=== PATIENT | male | born 1995 | race Caucasian/White ===

== ENCOUNTER 2020-05-07 10:35 | Outpatient (REF) | payer MEDICAID, SELFPAY ==
--- NOTE | ~2020-05-07 | XR_ITS ---
EXAMINATION: XR RIBS, LEFT CLINICAL INFORMATION: Contusion COMPARISON: None TECHNIQUE: 3 views of the left ribs and one view of the chest were obtained. FINDINGS: Lungs are clear. No consolidation, pneumothorax, or pleural effusion. The cardiomediastinal silhouette and pulmonary vasculature are normal. Osseous structures are unremarkable. Ribs are intact. No fractures are identified. XR/XR ribs LT min 3V w CXR1V IMPRESSION: Unremarkable examination.
== END 2020-05-07 10:36 | disposition home or self-care (01) ==
LOC: HO.XRAY 10:35
PROVIDERS: PCP Internal Medicine; Visit Provider Internal Medicine
DX: S20.212A Contusion of left front wall of thorax, initial encounter (principal)
CPT/HCPCS: 71101

== ENCOUNTER 2020-11-10 11:34 | Day surgery (SDC) | payer MEDICAID, SELFPAY ==
[2020-11-10] VITALS (14 sets, daily range): BP systolic 116–161; BP diastolic 60–96; PULSE 82–101; RESP 16–20; TEMP 36.4–37; O2SAT 95–100; BMI 32.9; BMI 47.8
--- NOTE | ~2020-11-10 | US_ITS ---
EXAMINATION: US ABDOMEN LIMITED CLINICAL INFORMATION: Right upper quadrant pain. COMPARISON: None TECHNIQUE: Real-time imaging of the right upper quadrant abdominal viscera. FINDINGS: PANCREAS: Normal. LIVER: Evaluation somewhat limited due to overlying bowel gas and patient body habitus. The liver is normal in size. The liver contour is normal. Parenchymal echogenicity is normal. No focal hepatic lesion. There is no intrahepatic biliary duct dilatation seen. GALLBLADDER: Gallstone measuring up to 3.3 cm. No gallbladder wall thickening or pericholecystic free fluid to suggest acute cholecystitis. COMMON BILE DUCT: Normal in caliber measuring 0.5 cm in diameter. RIGHT KIDNEY: Partially obscured by overlying bowel gas and due to patient body habitus. No hydronephrosis. No renal calculi or focal parenchymal lesions. The kidney measures 10.5 cm in maximum dimension. FREE FLUID: None. US/US abdomen limited IMPRESSION: Cholelithiasis. No gallbladder wall thickening or pericholecystic free fluid to suggest acute cholecystitis. Liver and right kidney partially visualized due to patient body habitus and overlying bowel gas.
[2020-11-10 11:13] LABS: Appearance Urine HAZY; Color Urine YELLOW; Glucose Urine UA NEG (NEG); Leukocyte Esterase Urine NEG (NEG); Nitrite Urine NEG (NEG); Specific Gravity - Urine 1.025 (1.005-1.025); Urine Blood NEG (NEG); Urine Ketones NEG (NEG); Urine Protein TRACE MG/DL (NEG-TRACE)
[2020-11-10 11:18] LABS: WBC Urine 0 /HPF (0-4)
[2020-11-10 11:19] LABS: Mucus Urine 2+ /LPF; RBC Urine 0 /HPF (0)
--- NOTE | 2020-11-10 11:27 | ED.ABDPAIN ---
HPI - Abdominal Pain General Chief Complaint: Abdominal Pain Stated Complaint: abd pain Time Seen by Provider: 11/10/20 11:25 Source: patient Mode of arrival: ambulatory Limitations: no limitations History of Present Illness HPI narrative: 25-year-old male came in for evaluation of abdominal pain. Pain started about 4 days ago described as a constant pain localized and in a epigastric/right upper quadrant area with no radiation, pain is associated with nausea vomiting and normal bowel movement, food aggravate the pain, nothing alleviates the pain. Patient declined any fever, chills, or diarrhea. Never had similar pain in the past. Patient declined using alcohol. Related Data Home Medications Medication Instructions Recorded Confirmed sertraline 100 mg tablet 200 mg PO DAILY 11/10/20 11/10/20 Allergies Allergy/AdvReac Type Severity Reaction Status Date / Time No Known Allergies Allergy Verified 11/10/20 10:51 Review of Systems Review of Systems All other systems are reviewed and are negative Constitutional: Reports as per HPI and Reports no additional constitutional complaints Eyes: Reports as per HPI and Reports no additional eye complaints Reports system reviewed and no additional complaints, except as documented Cardiovascular: Reports as per HPI and Reports no additional cardiovascular complaints Respiratory: Reports as per HPI and Reports no additional respiratory complaints Gastrointestinal: Reports as per HPI and Reports no additional gastrointestinal complaints Genitourinary: Reports no additional female genitourinary complaints Musculoskeletal: Reports no additional musculoskeletal complaints Skin/Breast: Reports system reviewed and no additional complaints, except as docu Psychiatric: Reports no additional psychiatric complaints Endocrine: Reports no additional endocrine complaints Hematologic/Lymphatic: Reports no additional hematologic/lymphatic complaints Allergic/Immunologic: Reports no additional allergic/immunologic complaints Reports system reviewed and no additional complaints, except as documented and Reports Abnormal speech present Physical Exam Vital Signs: Vital Signs: Last Vital Signs Temp 98.4 F 11/10/20 12:10 Pulse 82 11/10/20 14:24 Resp 16 11/10/20 14:24 BP 147/85 H 11/10/20 14:24 Pulse Ox 99 11/10/20 14:24 Body Mass Index 32.9 Vital signs have been reviewed as appeared to be correct. Blood pressure normal. Heart rate normal. Respiration rate normal. Temperature normal. Oxygen saturation normal. Appearance: Alert. Oriented X3. No acute distress. Head: Normal external exam. Normocephalic. Atraumatic. No Christine signs noted. No raccoon eyes noted Eyes: PERRLA. EOMI. Conjunctiva and sclera normal. Eyelids normal. ENT: TM's Normal. Pharynx normal. Uvula midline. Moist mucous membranes. No trismus noted. No drooling noted. No muffled voice noted. Neck: Normal inspection. Neck supple. FROM. No adenopathy. Thyroid Normal. No meningeal signs. No neck mass noted. CVS: Normal heart rate and rhythm. Heart sound normal. No murmurs noted. Pulses normal throughout. Respiratory: No respiratory distress. Painless inspiration. Breath sounds normal. No wheezes/rales/rhonchi noted. Chest nontender. No accessory muscle usage noted or decreased air movement noted. Abdomen: Obese, Soft, mild tenderness to the right upper quadrant area, no rebound, no guarding. Bowel sounds normal in all 4 quadrants. No distention noted. No organomegaly noted. No visible injury noted. Back: No CVA tenderness. Full range of motion noted. Skin: Skin warm and dry. Normal skin color. Normal skin turgor. No rashes/lesions/lacerations noted. Extremities: No lower extremity edema. Extremities exhibit normal range of motion. Extremities nontender. Neuro: Oriented X 3. Cranial nerve exam: II-XII are grossly intact No motor deficit. No sensory deficit. Reflexes normal. Course Course Course Narrative: A 25-year-old male came in with upper abdominal pain for the past 4 days, patient still in pain even after several doses of pain medication in the emergency room, ultrasound showed cholelithiasis without acute cholecystitis, the case discussed with the patient and Dr. Katz from General surgery, will keep the patient NPO for cholecystectomy MDM - Abdominal Pain Lab Data Attestation: I reviewed the patient's lab results. Result diagrams: 11/10/20 12:02 11/10/20 12:02 Labs: Lab Results 11/10/20 11/10/20 11/10/20 Range/Units 11:06 12:02 12:02 WBC 11.3 H (4.8-10.8) X10*3/uL RBC 5.14 (4.60-5.80) X10*6/uL Hgb 14.2 (14.0-18.0) g/dl Hct 42.3 (42-52) % MCV 82.3 (80-98) fL MCH 27.6 (27.0-33.0) pg MCHC 33.6 (31.0-36.0) g/dl RDW 13.6 (11.0-16.0) % Plt Count 244 (160-400) X10*3/uL MPV 11.5 (9.4-12.4) fL Immature Gran % (Auto) 0.3 (0.0-0.4) % Neut % (Auto) 77.6 H (45-73) % Lymph % (Auto) 15.1 L (20-40) % [place] % (Auto) 6.4 (2-11) % Eos % (Auto) 0.3 (0-4) % Baso % (Auto) 0.3 (0-2) % Lymph # (Auto) 1.7 (1.2-4.9) X10*3/uL [place] # (Auto) 0.7 (0.1-1.2) X10*3/uL Eos # (Auto) 0.0 (0.0-0.4) X10*3/uL Baso # (Auto) 0.0 (0.0-0.2) X10*3/uL Abs Immat Gran (auto) 0.03 (0.00-0.03) X10*3/uL Absolute Neuts (auto) 8.8 H (2.0-8.3) X10*3/uL Absolute Nucleated RBC 0.000 (0.0-0.012) X10*3/uL Nucleated RBC % (auto) 0.0 (0.0-0.2) /100WBC Sodium 135 (135-145) mmol/L Potassium 4.3 (3.3-5.1) mmol/L Chloride 102 (96-108) mmol/L Carbon Dioxide 25 (22-29) mmol/L Anion Gap 12 (12-20) BUN 8 L (9-16) mg/dL Creatinine 0.90 (0.5-1.4) mg/dL Estim Creat Clear Calc 144.5 Estimated GFR > 60 Random Glucose 105 (60-115) mg/dL Calcium 9.3 (8.4-10.2) mg/dL Total Bilirubin 0.8 (0.0-1.0) mg/dL Direct Bilirubin 0.3 (0.0-0.5) mg/dL AST 19 (5-37) U/L ALT 31 (0-40) U/L Alkaline Phosphatase 91 (39-117) U/L Total Protein 8.1 H (6.5-8.0) g/dL Albumin 4.5 (3.5-5.0) g/dL Lipase 20 (8-78) U/L Urine Color YELLOW Urine Appearance HAZY Urine pH 6.0 (5.0-8.0) Ur Specific [place] 1.025 (1.005-1.025) Urine Protein TRACE (NEG-TRACE) MG/DL Urine Glucose (UA) NEG (NEG) MG/DL Urine Ketones NEG (NEG) MG/DL Urine Blood NEG (NEG) Urine Nitrite NEG (NEG) Ur Leukocyte Esterase NEG (NEG) Urine RBC 0 (0) /HPF Urine WBC 0 (0-4) /HPF Ur Squamous Epith Cells NONE /LPF Urine Bacteria NONE /LPF Urine Mucus 2+ /LPF Imaging Data Abdominal ultrasound: Radiologist's impression: Cholelithiasis. No gallbladder wall thickening or pericholecystic free fluid to suggest acute cholecystitis. ? Liver and right kidney partially visualized due to patient body habitus and overlying bowel gas. Discharge Plan Discharge Clinical Impression: Cholelithiasis Patient Disposition: Admitted As Inpatient Prescriptions: No Action sertraline 100 mg tablet 200 mg PO DAILY RF: 0 PMFSH Past Medical History Medical History Asthma Social History Social History Smoked in Last 30 Days: No Advance Directives: No
[2020-11-10 12:06] LABS: MANUAL DIFF FLAG NO
[2020-11-10] MEDS: Famotidine/PF 20 MG/2 ML VIAL IVPUSH (12:06)
[2020-11-10] MEDS: 0.9 % Sodium Chloride 1,000 ML 999 ML IVCONT (12:06)
[2020-11-10] MEDS: ondansetron HCL 4 MG/2 ML VIAL IVPUSH ×2 (12:06→18:20)
[2020-11-10 12:08] LABS: Basophils Percent Auto 0.3 % (0-2); Eosinophils Percent Auto 0.3 % (0-4); Hematocrit 42.3 % (42-52); Hemoglobin 14.2 g/dl (14.0-18.0); Imm Gran Abs Auto 0.03 X10*3/uL (0.00-0.03); Imm Gran Pct Auto 0.3 % (0.0-0.4); Lymphocytes Absolute Auto 1.7 X10*3/uL (1.2-4.9); Lymphocytes Percent Auto 15.1 % (20-40); Mean Corpuscular HGB Conc 33.6 g/dl (31.0-36.0); Mean Corpuscular Hemoglobin 27.6 pg (27.0-33.0); Mean Corpuscular Volume 82.3 fL (80-98); Mean Platelet Volume 11.5 fL (9.4-12.4); Monocytes Absolute Auto 0.7 X10*3/uL (0.1-1.2); Monocytes Percent Auto 6.4 % (2-11); Neutrophils Absolute Auto 8.8 X10*3/uL (2.0-8.3); Neutrophils Percent Auto 77.6 % (45-73); Platelet Count 244 X10*3/uL (160-400); Red Blood Count 5.14 X10*6/uL (4.60-5.80); Red Cell Distribution Width 13.6 % (11.0-16.0); White Blood Count 11.3 X10*3/uL (4.8-10.8)
[2020-11-10 12:32] LABS: Alanine Aminotransferase 31 U/L (0-40); Albumin Level 4.5 g/dL (3.5-5.0); Alkaline Phosphatase 91 U/L (39-117); Anion Gap 12 (12-20); Aspartate Amino Transferase 19 U/L (5-37); Bilirubin Direct 0.3 mg/dL (0.0-0.5); Bilirubin Total 0.8 mg/dL (0.0-1.0); Blood Urea Nitrogen 8 mg/dL (9-16); Calcium 9.3 mg/dL (8.4-10.2); Carbon Dioxide 25 mmol/L (22-29); Chloride 102 mmol/L (96-108); Creatinine Clr Calc Pharmacy 144.5; Estimated Glomerular Filt Rate > 60; Glucose Random 105 mg/dL (60-115); Lipase 20 U/L (8-78); Potassium 4.3 mmol/L (3.3-5.1); Sodium 135 mmol/L (135-145); Total Protein 8.1 g/dL (6.5-8.0)
--- NOTE | 2020-11-10 13:18 | PHA.MEDREC ---
Pharmacy Consult ? Medication Reconciliation Pharmacy has completed the medication reconciliation. There are no remarkable issues for provider's attention. Joann Plaza, ManojD
[2020-11-10] MEDS: oxyCODONE HCl Immed Release 5 MG TABLET PO (14:20)
--- NOTE | 2020-11-10 14:57 | P.HPGS_ITS ---
History of Present Illness History of Present Illness Date of Service: 11/10/20 Chief complaint: abd pain Narrative: Gavin Brown is a 25 year old male presenting with complaints of abdominal pain in the right upper quadrant and epigastrium. The pain began on Sunday11/07/2020 and continued over the next 2 days increasing in severity. Pain was associated with nausea and vomiting but he denied fever, chills, diarrhea. He has a history of constipation. Denies a previous history of si milar pain. The symptoms began after eating a fried chicken sandwich. He subsequently presented to the emergency department and was noted to have a mildly elevated WBC. Ultrasound of the abdomen revealed a gallbladder with a large gallstone within the gallbladder. He is being admitted for laparoscopic or possible open cholecystectomy. Review of Systems Review of Systems: Yes all other systems are reviewed and are negative Constitutional: Constitutional: Reports anorexia, Denies chills, Denies fever(s) and Denies night sweats Cardiovascular: Cardiovascular: Denies chest pain, Reports Epigastric Pain, Denies irregular heart rhythm and Denies palpitations Respiratory: Respiratory: Denies chest congestion, Denies cough and Denies hemoptysis Gastrointestinal: Gastrointestinal: Reports as per HPI, Reports abdominal pain, Denies diarrhea, Reports nausea and Reports vomiting Genitourinary: Genitourinary: Reports no additional male genitourinary complaints Musculoskeletal: Musculoskeletal: Reports no additional musculoskeletal complaints Integumentary/Breasts: Skin/Breast: Reports system reviewed and no additional complaints, except as docu Neurologic: Reports system reviewed and no additional complaints, except as documented Psychiatric: Psychiatric: Reports no additional psychiatric complaints Endocrine: Endocrine: Reports no additional endocrine complaints and Denies palpitations PMF Past Medical History Medical History Asthma Social History Social History Smoked in Last 30 Days: No Advance Directives: No Meds Allergies Allergy/AdvReac Type Severity Reaction Status Date / Time No Known Allergies Allergy Verified 11/10/20 10:51 Home Medications Medication Instructions Recorded Confirmed Last Taken Type sertraline 100 mg tablet 200 mg PO DAILY 11/10/20 11/10/20 11/09/20 History Physical Exam Vital Signs: Vital Signs: Last Vital Signs Temp 98.4 F 11/10/20 12:10 Pulse 82 11/10/20 14:24 Resp 16 11/10/20 14:24 BP 147/85 H 11/10/20 14:24 Pulse Ox 99 11/10/20 14:24 Body Mass Index 32.9 Const: General: no acute distress and well developed Nutritional Appearance: well nourished Orientation/consciousness: patient oriented x3 Limitations: no limitations HENMT: Head: Yes normocephalic and Yes atraumatic Ears: hearing grossly normal bilaterally Resp: Effort & Inspection: normal respiratory effort, no audible wheezes, no cough and no stridor Auscultation: clear to auscultation bilaterally Cardio: Jugular venous distension: no JVD Rate: regular rate Rhythm: regular rhythm Heart sounds: S1 normal heart sound present and S2 normal heart sound present GI: Inspection: Yes normal to inspection Palpation (GI): Soft to palpation and Tenderness to palpation present (GI) in the RUQ and Varner's sign positive Percussion: Yes normal to percussion Auscultation: normal bowel sounds Skin: General skin exam: no rashes or lesions noted Neuro: General: patient oriented x3 Extrem: General: Yes no clubbing, cyanosis or edema Results Results Labs: Short CBC 11/10/20 Range/Units 12:02 WBC 11.3 H (4.8-10.8) X10*3/uL Hgb 14.2 (14.0-18.0) g/dl Hct 42.3 (42-52) % Plt Count 244 (160-400) X10*3/uL BMP 11/10/20 12:02 Sodium 135 Potassium 4.3 Chloride 102 Carbon Dioxide 25 BUN 8 L Creatinine 0.90 Calcium 9.3 Liver Function 11/10/20 Range/Units 12:02 Total Bilirubin 0.8 (0.0-1.0) mg/dL Direct Bilirubin 0.3 (0.0-0.5) mg/dL AST 19 (5-37) U/L ALT 31 (0-40) U/L Alkaline Phosphatase 91 (39-117) U/L Albumin 4.5 (3.5-5.0) g/dL Urine 11/10/20 Range/Units 11:06 Urine Color YELLOW Urine Appearance HAZY Urine pH 6.0 (5.0-8.0) Ur Specific [place] 1.025 (1.005-1.025) Urine Protein TRACE (NEG-TRACE) MG/DL Urine Glucose (UA) NEG (NEG) MG/DL Assessment and Plan (1) Acute cholecystitis due to biliary calculus: Status: Acute 25-year-old male patient presenting with complaints of abdominal pain in the epigastrium and right upper quadrant found on ultrasound to have a large gallstone within the gallbladder. On examination the patient is tender in the right upper quadrant with a positive Varner sign suggestive of acute cholecystitis. Patient remains tender despite multiple doses of pain medication. After discussion of the procedure, risks, and alternatives, the patient consents to a laparoscopic or possible open cholecystectomy. He has been added onto the operative schedule for today. Quality Stroke Does the patient have a stroke diagnosis?: No VTE Prior VTE?: No VTE Risk Level:: Surgical - moderate VTE Device Contraindication: N/A - Device Ordered VTE Drug Contraindication: Treatment Not Indicated Procedures Date of Service Date of Service: 11/10/20
--- NOTE | 2020-11-10 15:22 | P.CONAN_ITS ---
FORMERLY [facility] Active Problems Active Problems: All Active Problems (Updated 11/10/20 @ 15:02 by Grant carter MD) Acute cholecystitis due to biliary calculus (Acute) Past Medical History Medical History Asthma Social History Social History Smoked in Last 30 Days: No Advance Directives: No Meds Allergies Allergy/AdvReac Type Severity Reaction Status Date / Time No Known Allergies Allergy Verified 11/10/20 10:51 Active Medications: Current Medications Cefotetan Disodium 2 gm/ (Sodium Chloride) 50 mls @ 100 mls/hr IV PREOP ONE Stop: 11/10/20 15:24 Lactated Ringer's (Lr) 1,000 mls @ 100 mls/hr IVCONT .Q10H AWILDA Home Medications Medication Instructions Recorded Confirmed Last Taken Type sertraline 100 mg tablet 200 mg PO DAILY 11/10/20 11/10/20 11/09/20 History Exam Exam Date and Time: November 10, 2020 1522 Height,Weight and Vital Signs: Height 5 ft 9 in Weight 101.151 kg Last Vital Signs Temp 98.4 F 11/10/20 12:10 Pulse 82 11/10/20 14:24 Resp 16 11/10/20 14:24 BP 147/85 H 11/10/20 14:24 Pulse Ox 99 11/10/20 14:24 Pertinent Lab Results Pertinent Lab Results: Laboratory Tests 11/10/20 11/10/20 11/10/20 11:06 12:02 12:02 WBC 11.3 H RBC 5.14 Hgb 14.2 Hct 42.3 MCV 82.3 MCH 27.6 MCHC 33.6 RDW 13.6 Plt Count 244 MPV 11.5 Immature Gran % (Auto) 0.3 Neut % (Auto) 77.6 H Lymph % (Auto) 15.1 L [place] % (Auto) 6.4 Eos % (Auto) 0.3 Baso % (Auto) 0.3 Lymph # (Auto) 1.7 [place] # (Auto) 0.7 Eos # (Auto) 0.0 Baso # (Auto) 0.0 Abs Immat Gran (auto) 0.03 Absolute Neuts (auto) 8.8 H Absolute Nucleated RBC 0.000 Nucleated RBC % (auto) 0.0 Sodium 135 Potassium 4.3 Chloride 102 Carbon Dioxide 25 Anion Gap 12 BUN 8 L Creatinine 0.90 Estim Creat Clear Calc 144.5 Estimated GFR > 60 Random Glucose 105 Calcium 9.3 Total Bilirubin 0.8 Direct Bilirubin 0.3 AST 19 ALT 31 Alkaline Phosphatase 91 Total Protein 8.1 H Albumin 4.5 Lipase 20 Urine Color YELLOW Urine Appearance HAZY Urine pH 6.0 Ur Specific [place] 1.025 Urine Protein TRACE Urine Glucose (UA) NEG Urine Ketones NEG Urine Blood NEG Urine Nitrite NEG Ur Leukocyte Esterase NEG Urine RBC 0 Urine WBC 0 Ur Squamous Epith Cells NONE Urine Bacteria NONE Urine Mucus 2+ Airway Mallampati Class: II TM Dist: >3cm Neck ROM: Full
[2020-11-10] MEDS: Lactated Ringers 1,000 ML 100 ML IVCONT (15:29)
--- NOTE | 2020-11-10 17:46 | W.PM.OPN ---
Operative Note Operative Note Date of Service: 11/10/20 Narrative: Preoperative diagnosis: Acute cholecystitis, cholelithiasis Postoperative diagnosis: Same Procedure: Laparoscopic cholecystectomy Surgeon: Grant Katz MD Media Production Manager: Vj Cronin MD Anesthesia: General endotracheal Indications for procedure: 25 year old male with right upper quadrant abdominal pain found to have gallstones in the gallbladder. He is noted to be tender with positive Varner's sign. Operative findings:Acute cholecystitis with several large impacted gallstones Specimen:gallbladder Estimated blood loss:10 ml Complications: none Procedure details: Patient was brought to the OR and placed in a supine position. After administering general anesthesia the patient's abdomen was prepped with ChloraPrep and draped in a sterile fashion. Local anesthesia consisting of 0.75% Sensorcaine with epinephrine was infiltrated in a periumbilical region. A 5 mm incision was made above the umbilicus in a transverse fashion. The Veress needle was then inserted while elevating abdominal cavity with towel clips. After positive drop test the abdomen was insufflated to a pressure of 15 mm of mercury. The Veress needle was then removed and a 5 mm trocar inserted. The camera was inserted in the abdomen explored. A 12 mm trocar was then placed in the epigastrium and 2 5 mm trocars placed in the right upper quadrant. The patient was placed in reverse Trendelenburg positioning and rotated to the left. The gallbladder was grasped with the fundus and retracted cephalad.. The infundibulum Was then grasped and retracted away from the liver bed. The Dolphin dissected was then used to dissect the peritoneum off the infundibulum to reveal the junction with the cystic duct. Cystic artery was noted slightly medial and posterior to the cystic duct. After obtaining a critical view the cystic duct was doubly clipped and divided. The cystic artery was then doubly clipped and divided. The gallbladder was then dissected off the liver bed using electrocautery with an L hook. Hemostasis was assured all times using the electrocautery. When the gallbladder is completely dissected off the liver bed was placed in an Endo-Catch bag and brought out through the epigastric incision. The gallbladder was sent to pathology for further examination. The abdomen was then re-examined. The liver bed was irrigated and suctioned dry. No bleeding or bile leak could be identified. CO2 was then evacuated and all trocars removed. Fascia was closed at the epigastric incision using a [id number] 0 Polysorb suture. Skin was closed in all incisions using a subcuticular 4 0 Polysorb suture. Sterile dressings consisting of Steri-Strips, 2 x 2 gauze, and Tegaderm were then applied. The patient tolerated the procedure well. Sponge instrument and needle counts reported as correct. The patient was transferred to PACU in stable condition.
[2020-11-10 17:52] LABS: COVID-19 Test Negative (Negative)
[2020-11-10] MEDS: Dextrose 5 % and Lactated Ring 1,000 ML 125 ML IVCONT (19:46)
[2020-11-10] MEDS: Morphine Sulfate 2 MG/ML CARTRIDGE 4 MG IVPUSH (20:19)
[2020-11-11] VITALS: BP 122/66; PULSE 89; RESP 17; TEMP 36.6; O2SAT 94
[2020-11-11] MEDS: Dextrose 5 % and Lactated Ring 1,000 ML 125 ML IVCONT (03:09)
[2020-11-11 04:00] VITALS: BP 114/67; PULSE 82; RESP 17; TEMP 36.6; O2SAT 95
[2020-11-11 05:16] LABS: MANUAL DIFF FLAG NO
[2020-11-11 05:21] LABS: Basophils Percent Auto 0.1 % (0-2); Eosinophils Percent Auto 0.1 % (0-4); Hematocrit 43.1 % (42-52); Hemoglobin 14.1 g/dl (14.0-18.0); Imm Gran Abs Auto 0.03 X10*3/uL (0.00-0.03); Imm Gran Pct Auto 0.3 % (0.0-0.4); Lymphocytes Absolute Auto 1.2 X10*3/uL (1.2-4.9); Lymphocytes Percent Auto 11.2 % (20-40); Mean Corpuscular HGB Conc 32.7 g/dl (31.0-36.0); Mean Corpuscular Hemoglobin 27.1 pg (27.0-33.0); Mean Corpuscular Volume 82.7 fL (80-98); Mean Platelet Volume 11.4 fL (9.4-12.4); Monocytes Absolute Auto 0.6 X10*3/uL (0.1-1.2); Monocytes Percent Auto 5.7 % (2-11); Neutrophils Absolute Auto 8.7 X10*3/uL (2.0-8.3); Neutrophils Percent Auto 82.6 % (45-73); Platelet Count 280 X10*3/uL (160-400); Red Blood Count 5.21 X10*6/uL (4.60-5.80); Red Cell Distribution Width 13.5 % (11.0-16.0); White Blood Count 10.6 X10*3/uL (4.8-10.8)
--- NOTE | 2020-11-11 07:32 | HO.POSTANES ---
Post Anesthesia Evaluation Post Anesthesia Evaluation Vital Signs: Vital Signs Temp Pulse Resp BP Pulse Ox 11/11/20 04:00 98 F 82 17 114/67 95 11/11/20 00:00 98 F 89 17 122/66 94 11/10/20 20:00 98.5 F 95 17 141/80 H 96 Anesthesia: General Endotracheal-GETA Mental Status: Awake Pain Control: Satisfactory Nausea/Vomiting: None Hydration: Adequate Anesthesia-Related Issues: No Anes. Related Issues
--- NOTE | 2020-11-11 07:51 | P.PNGS_ITS ---
Subjective Subjective Date of Service: 11/11/20 Interval history: Feels ok, sore. Has not eaten anything. Has been OOB to bathroom without difficulty. Physical Exam Vital Signs: Vital Signs: Last Vital Signs Temp 98 F 11/11/20 04:00 Pulse 82 11/11/20 04:00 Resp 17 11/11/20 04:00 BP 114/67 11/11/20 04:00 Pulse Ox 95 11/11/20 04:00 Body Mass Index 47.8 Const: General: comfortable, no acute distress and alert Orientation/consciousness: patient oriented x3 Eyes: Sclerae: sclerae normal Resp: Effort & Inspection: normal respiratory effort GI: Inspection: No distended and Yes incision (dressings clean) Palpation (GI): Soft to palpation, Tenderness to palpation present (GI) (mild, incisional), no guarding and not rigid Percussion: Yes normal to percussion Skin: General skin exam: no rashes or lesions noted Neuro: General: patient oriented x3 Procedures Date of Service Date of Service: 11/11/20 Progress Note: A&P Assessment and plan (1) Acute cholecystitis due to biliary calculus: Status: Acute (2) S/P laparoscopic cholecystectomy: Status: Acute Assessment and Plan: 25 year old male admitted with acute calculous cholecystitis now POD #1 s/p lap CCY. He is doing well post op. VSS. Abd exam benign with appropriate post op tenderness, dressings c/d/i. Will reassess later today, if tolerating solid diet and OOB and remains comfortable, stable for discharge to home. Discussed with patient who is comfortable with plan. F/u in office in [address] Katz. Fall Risk Details Current Medications: Current Medications Acetaminophen (Acetaminophen 325 Mg Tablet) 650 mg PO Q6H PRN PRN Reason: Pain, Mild (Pain Scale 1-3) Promethazine HCl 12.5 mg/ (Sodium Chloride) 50.5 mls @ 202 mls/hr IV ONCE PRN PRN Reason: Nausea and Vomiting Insulin Human Regular (Myxredlin) 100 unit in 100 mls @ 0 mls/hr IVCONT .Q0M S CH; Protocol Dextrose/Lactated Ringer's (D5lr) 1,000 mls @ 125 mls/hr IVCONT .Q8H AWILDA Last Admin: 11/11/20 03:09 Dose: 125 mls/hr Documented by: Morphine Sulfate (Morphine Sulfate 2 Mg/Ml Cartridge) 4 mg IVPUSH Q3H PRN; Protocol PRN Reason: Pain, Severe (Pain Scale 7-10) Last Admin: 11/10/20 20:19 Dose: 4 mg Documented by: Ondansetron HCl (Ondansetron Hcl 4 Mg/2 Ml Vial) 4 mg IVPUSH Q8H PRN PRN Reason: Nausea Oxycodone HCl (Oxycodone Hcl Immed Release 5 Mg Tablet) 10 mg PO Q4H PRN PRN Reason: Pain, Moderate (Pain Scale 4-6 Sertraline HCl (Sertraline Hcl 100 Mg Tablet) 200 mg PO DAILY [facility] Sodium Chloride (0.9 % Sodium Chloride Flush 3 Ml Syringe) 3 ml IVFLUSH QSHIFT [facility] Last Admin: 11/11/20 07:31 Dose: Not Given Documented by: Zolpidem Tartrate (Zolpidem Tartrate 5 Mg Tablet) 5 mg PO BEDTIME PRN PRN Reason: Insomnia Time Spent With Patient Time: Total time spent is greater than 50% in coordination of care (as documented) at patient's floor/unit and/or counseling patient: Time with patient: 15 - 24 minutes Quality Stroke Does the patient have a stroke diagnosis?: No VTE Prior VTE?: No VTE Risk Level:: Surgical - moderate VTE Device Contraindication: N/A - Device Ordered VTE Drug Contraindication: Treatment Not Indicated
[2020-11-11 08:00] VITALS: BP 123/58; PULSE 81; RESP 18; TEMP 37.3; O2SAT 95
--- NOTE | 2020-11-11 09:25 | MHC.CM.PN ---
EMR REVIEWED, PT S/P LAP GREG, TOLERATING REGULAR DIET AND WILL BE D/C'D TODAY, CM MET W/PT WHO REPORTS HE LIVES WITH HIS GRANDPARENTS AND TWO SIBLINGS, PT IS INDEPENDENT W/ALL CARE, NO DME AND NO HOME SERVICES, PT REPORTS HIS PCP WAS THROUGH [facility] AND WAS DR. GERMAN BRIGHT HOWEVER PT HAS NOT SEEN HER SINCE PRE-COVID, PT ENCOURAGED TO EITHER SET UP APPT W/DR. BRIGHT OR FIND A NEW PCP, [facility] PROVIDERS GIVEN TO PT HE LIVES IN [place] AND THERE IS AN OFFICE IN [place]. PT PROVIDED W/EDUCATION ON HCP'S AND PT IS CURRENTLY DECLINING. D/C PLAN: HOME SELF-CARE TODAY, PT WILL CALL FAMILY FOR TRANSPORT.
[2020-11-11] MEDS: oxyCODONE HCl Immed Release 5 MG TABLET 10 MG PO (09:30)
[2020-11-11] MEDS: Sertraline HCL 100 MG TABLET 200 MG PO (09:30)
--- NOTE | 2020-11-11 12:40 | P.DS_ITS ---
DS: Providers Provider Date of Service: 11/11/20 Primary care physician: Unknown Physician Attending physician on admission: Grant Katz DS: Diagnosis Discharge Diagnosis (1) Acute cholecystitis due to biliary calculus: Status: Acute (2) S/P laparoscopic cholecystectomy: Status: Acute DS: Summary Hospital Course Hospital Course: BRIEF HPI: Gavin Brown is a 25 year old male presenting with complaints of abdominal pain in the right upper quadrant and epigastrium.? The pain began on Sunday11/07/2020 and continued over the next 2 days increasing in severity.? Pain was associated with nausea and vomiting but he denied fever, chills, diarrhea.? He has a history of constipation.? Denies a previous history of similar pain.? The symptoms began after eating a fried chicken sandwich.? He subsequently presented to the emergency department and was noted to have a mildly elevated WBC.? Ultrasound of the abdomen revealed a gallbladder with a large gallstone within the gallbladder.? He is being admitted for laparoscopic or possible open cholecystectomy. HOSPITAL COURSE: On 11/10/20, a laparoscopic cholecystectomy was performed by Dr. Katz without complication. The patient tolerated the procedure well, completed routine recovery in PACU and was admitted to the medical/surgical floor for observation. The patient had an uncomplicated post operative course. On POD #1, he felt overall better and his pain was controlled. His abdomen was benign with clean dressings. He was reassessed later in the day and was tolerating a solid diet without nausea/vomiting and was OOB without difficulty. He was discharged to home on 11/11/20 in stable condition. He is to follow up with Dr. Katz in office. Status at Discharge Functional status at discharge: independent ambulation Overall status at discharge: patient is progressing back to baseline Time Spent with Patient Time attestation: Total time spent providing and/or coordinating discharge services: Discharge coordination time: Less than 30 minutes Quality: Stroke Does the patient have a stroke diagnosis?: No Physical Exam Vital Signs: Vital Signs: Last Vital Signs Temp 99.1 F 11/11/20 08:00 Pulse 81 11/11/20 08:00 Resp 18 11/11/20 08:00 BP 123/58 L 11/11/20 08:00 Pulse Ox 95 11/11/20 08:00 Body Mass Index 47.8 Const: General: comfortable, no acute distress and alert Orientation/consciousness: patient oriented x3 Eyes: Sclerae: sclerae normal Resp: Effort & Inspection: normal respiratory effort GI: Inspection: No distended and Yes incision (dressings intact) Palpation (GI): Soft to palpation, Tenderness to palpation present (GI) (mild, incisional), no guarding and not rigid Percussion: Yes normal to percussion Skin: General skin exam: no rashes or lesions noted Neuro: General: patient oriented x3 Extrem: General: Yes no clubbing, cyanosis or edema DS: Data Data Completed and Pending Pending studies at discharge: Pending at discharge 11/10/20 17:16 Surgical [PTH] Routine Labs on day of discharge: Laboratory Results - last 24 hr 11/10/20 11/11/20 Unknown 05:10 WBC 10.6 RBC 5.21 Hgb 14.1 Hct 43.1 MCV 82.7 MCH 27.1 MCHC 32.7 RDW 13.5 Plt Count 280 MPV 11.4 Immature Gran % (Auto) 0.3 Neut % (Auto) 82.6 H Lymph % (Auto) 11.2 L [place] % (Auto) 5.7 Eos % (Auto) 0.1 Baso % (Auto) 0.1 Lymph # (Auto) 1.2 [place] # (Auto) 0.6 Eos # (Auto) 0.0 Baso # (Auto) 0.0 Abs Immat Gran (auto) 0.03 Absolute Neuts (auto) 8.7 H Absolute Nucleated RBC 0.000 Nucleated RBC % (auto) 0.0 COVID-19 ([facility]) Negative COVID-19 Clin Com See Note Discharge Plan Discharge Patient Disposition: Home, Self-Care Referrals: Grant Katz MD [Physician] - 1 Week PhysicianCharanjit [Primary Care Provider] - 1 Week Discharge Medications: New oxycodone 5 mg tablet 5 mg PO Q6H PRN (Reason: pain) Qty: 15 RF: 0 Continued sertraline 100 mg tablet 200 mg PO DAILY RF: 0 Discharge Orders: Discharge Order (Routine); Ordered 11/11/20 Ordered By: Grant Katz Patient Instructions: Low Fat Diet (DC) Stand Alone Forms: Work/School Release Activity Restrictions/Additional Instructions: If the incision area is tender, you may apply an ice pack for short intervals (No more than 20 minutes on, followed by at least 20 minutes off). Do not apply heat. Do not use creams, lotions, or topical antibiotics unless instructed to do so by your surgeon. These can cause infection or allergic reaction. Ok to shower. Remove clear dressings 3 days following your procedure. You have steri strips (small white cloth strips) covering your incision- these will fall off ~1 week. No heavy lifting (>10lbs)! Follow up in office with Dr. Katz in 1 week. ([phone]) Call Your Doctor If: -Your temperature exceeds 101.5? F -You experience excessive pain or swelling -You have an unexpected reaction to medication -You have excessive bleeding -You experience continued vomiting/nausea -Your incision begins to separate -Your incision shows signs of infection such as increased redness, swelling, excessive pain, drainage (light blood or clear fluid is normal) or heat Discharge Date/Time: 11/11/20 13:16
== END 2020-11-11 13:16 | disposition home or self-care (01) ==
LOC: HO.ED 15:15 → HO.SSS 20:39 → HO.S3 20:41
PROVIDERS: Absent Provider Surgery; Visit Provider Emergency Medicine
PROC: 0FT44ZZ Resection of Gallbladder, Percutaneous Endoscopic Approach (ICD-10-PCS; CPT 47562; principal; 2020-11-10 15:50)
DX: K80.12 Calculus of gallbladder with acute and chronic cholecystitis without obstruction (principal); J45.909 Unspecified asthma, uncomplicated; Z79.899 Other long term (current) drug therapy; Z20.822 Contact with and (suspected) exposure to COVID-19
CPT/HCPCS: 47562; 36415; 76705; 80048; 80076; 81001; 83690; 85025; 87635; 88304; 96361; 96374; 96375; 99285; J0131; J1100; J2250; J2270; J2405; J3010

== ENCOUNTER → 2020-11-19 09:00 | Outpatient (BNVA) | payer MEDICAID, SELFPAY | PROVIDERS: Visit Provider Surgery | DX: K80.00 Calculus of gallbladder with acute cholecystitis without obstruction (principal) | CPT/HCPCS: 99212 ==

== ENCOUNTER 2021-05-26 08:51 | Outpatient (REF) | payer MEDICAID, SELFPAY ==
[2021-05-26 09:41] LABS: MANUAL DIFF FLAG NO
[2021-05-26 10:11] LABS: Basophils Percent Auto 0.3 % (0-2); Eosinophils Absolute Auto 0.2 X10*3/uL (0.0-0.4); Eosinophils Percent Auto 1.3 % (0-4); Hematocrit 43.9 % (42.0-52.0); Hemoglobin 14.2 g/dl (14.0-18.0); Imm Gran Abs Auto 0.04 X10*3/uL (0.00-0.03); Imm Gran Pct Auto 0.3 % (0.0-0.4); Lymphocytes Absolute Auto 2.7 X10*3/uL (1.2-4.9); Lymphocytes Percent Auto 23.7 % (20-40); Mean Corpuscular HGB Conc 32.3 g/dl (31.0-36.0); Mean Corpuscular Hemoglobin 27.4 pg (27.0-33.0); Mean Corpuscular Volume 84.7 fL (80.0-98.0); Mean Platelet Volume 11.3 fL (9.4-12.4); Monocytes Absolute Auto 0.7 X10*3/uL (0.1-1.2); Monocytes Percent Auto 6.4 % (2-11); Neutrophils Absolute Auto 7.9 x10*3/uL (2.0-8.3); Platelet Count 271 X10*3/uL (160-400); Red Blood Count 5.18 X10*6/uL (4.60-5.80); Red Cell Distribution Width 13.6 % (11.0-16.0); White Blood Count 11.6 X10*3/uL (4.8-10.8)
[2021-05-26 10:43] LABS: Alanine Aminotransferase 45 U/L (0-40); Albumin Level 4.4 g/dL (3.5-5.0); Alkaline Phosphatase 100 U/L (39-117); Anion Gap 14 (12-20); Aspartate Amino Transferase 23 U/L (5-37); Bilirubin Total 0.7 mg/dL (0.0-1.0); Blood Urea Nitrogen 14 mg/dL (9-16); Carbon Dioxide 27 mmol/L (22-29); Chloride 102 mmol/L (96-108); Estimated Glomerular Filt Rate > 60; Glucose Random 112 mg/dL (60-115); Potassium 4.5 mmol/L (3.3-5.1); Sodium 138 mmol/L (135-145); Total Protein 8.1 g/dL (6.5-8.0)
[2021-05-26 11:34] LABS: Erythrocyte Sedimentation Rate 25 MM/HR (0-15)
== END 2021-05-26 08:52 | disposition home or self-care (01) ==
LOC: HO.LAB 08:51
PROVIDERS: PCP Internal Medicine; Referring Provider Internal Medicine; Visit Provider Physician Assistant
DX: Z01.818 Encounter for other preprocedural examination (principal); K62.5 Hemorrhage of anus and rectum; R19.7 Diarrhea, unspecified
CPT/HCPCS: 36415; 80053; 85025; 85652; 86140; 99202

== ENCOUNTER 2021-09-09 09:35 | Day surgery (SDC) | payer MEDICAID, SELFPAY ==
[2021-09-09 10:08] VITALS: BP 147/98; PULSE 99; RESP 19; TEMP 36.6; O2SAT 98
[2021-09-09 10:13] VITALS: BMI 49.4
[2021-09-09 10:22] VITALS: BMI 49.4
--- NOTE | 2021-09-09 12:08 | MHC.SHP ---
Pre-Procedural Eval Section A Date of Service: 09/09/21 The patient is an INPATIENT: No The History & Physical has been completed within 30 days and I have reviewed it.: No Section B Chief Complaint: screening Details of Present Illness: Colon cancer screening, rectal bleeding, intermittent diarrhea Relevant Family History (Specify if Yes): No Relevant Social History: None Present Medications: see Short Stay Collaborative assessment Medical History: Significant History (Acute cholecystitis due to biliary calculus Asthma) History of Previous Operations: Relevant previous surgery/procedure and date(s) (Hx of colonoscopy S/P laparoscopic cholecystectomy) Allergies: Allergies Allergy/AdvReac Type Severity Reaction Status Date / Time No Known Allergies Allergy Verified 09/05/21 16:15 Review of Systems Sugical H&P ROS: Negative: Constitution, Cardiovascular and Respiratory and Yes, Specify: Gastrointestinal (rectal bleeding) Exam Surgical H&P Exam: Normal: Heart, Normal: Lungs and Normal: Extremities Plan Diagnosis/Plan: Unchanged I have reviewed the history and physical and performed a pertinent physical examination on my patient. No changes have occurred unless specified.
--- NOTE | 2021-09-09 12:09 | PM.OP ---
Brief Operative Note Date of Service: 09/09/21 Pre-op diagnosis: Colon cancer screen Post-op diagnosis: other (Colon polyp, diverticulosis, hemorrhoids) Procedure: COLONOSCOPY TILL CECUM WITH BIOPSIES Consent: Indications for the procedure and potential complications of bleeding, perforation, reaction to medications and missed diagnosis were discussed with the patient and informed consent was obtained. Instrument: Olympus CF H 190 L variable stiffness adult colonoscope Monitoring: Vital signs and clinical assessment, intermittent blood pressure monitoring, continuous EKG monitoring, Pulse oximetry and Carbon Dioxide monitoring were done throughout the procedure. Colon withdrawl time was 11 minutes. Procedure: The patient was placed in the left lateral decubitis position and pre-procedure medications were administered. After a digital rectal examination of the ano-rectum, the video colonoscope was inserted into the rectum and advanced through the colon to the cecum. The colonoscope was slowly withdrawn in a retrograde panoramic fashion and the colon mucosa was carefully examined including a retroflexed view of the rectum. Findings and interventions are described below. Procedure Difficulty: Without difficulty Findings: Terminal Ileum: Not evaluated Cecum: Normal Ascending Colon: Normal Transverse Colon: Normal Descending Colon: Normal Sigmoid Colon: A few 4-5 mm diminutive appearing polyps in the rectosigmoid - 1 removed with the cold biopsy. Moderate diverticulosis Rectum: Normal Ano-rectum: Moderate internal hemorrhoids Colon preparation: Excellent Impression and Post Procedure Diagnosis: Colonoscopy Findings: One diminutive appearing polyp removed Mild diverticulosis seen in the sigmoid colon Moderate hemorrhoids on retroflexed exam. Plan: Await pathology results Patient has an appointment on 09/28/21 in the GI Clinic with SHANTELL Paez . Repeat Colonoscopy interval based on path results - in 5 years if polyps are adenomatous and 10 years if polyps are hyperplastic. Above findings were reviewed with the patient and colon polyps and diverticulosis handouts were given in the discharge area Surgeon: Uriel Sheikh MD Anesthesia: MAC Was an Sword Swallower used for this Procedure?: Yes Sword Swallower: Tanner Patel Estimated blood loss (mL): 0 Pathology: other (A: RIGHT COLON BXS R/O MICROSCOPIC COLITIS B: LEFT COLON BXS R/O MICROSCOPIC COLITIS C: SIGMOID POLYP) Condition: stable Disposition: PACU
--- NOTE | 2021-09-09 12:11 | HO.ANESPROP2 ---
[facility] Active Problems Active Problems: All Active Problems (Updated 05/26/21 @ 12:33 by Ankita Hutson PA-C) Change in consistency of stool (Acute) Rectal bleeding (Acute) Acute cholecystitis due to biliary calculus (Acute) Past Medical History Medical History Acute cholecystitis due to biliary calculus Asthma Family History Family history of problems with anesthesia: No Surgical History Surgical History Hx of colonoscopy S/P laparoscopic cholecystectomy History of Problems with Anesthesia: No Social History Social History Household Members: Family Housing: Apartment Do you presently have visiting nurse or other home services: No Patient Tobacco Use Status: Never used Tobacco Use of substances other than those prescribed or required for medical reasons: No Are you DNR?: No Advance Directives: No Advance Directives Information Provided: Yes service: No Current occupational status: unemployed Meds Allergies Allergy/AdvReac Type Severity Reaction Status Date / Time No Known Allergies Allergy Verified 09/05/21 16:15 Home Medications Medication Instructions Recorded Confirmed Last Taken Type sertraline 100 mg tablet 200 mg PO DAILY 11/10/20 09/05/21 11/09/20 History Exam Exam Date and Time: September 09, 2021 1211 Height,Weight and Vital Signs: Height 5 ft 9 in Weight 151.953 kg Last Vital Signs Temp 97.9 F 09/09/21 10:08 Pulse 99 09/09/21 10:08 Resp 19 09/09/21 10:08 BP 147/98 H 09/09/21 10:08 Pulse Ox 98 09/09/21 10:08 O2 Del Method 09/09/21 10:08 Airway Mallampati Class: II TM Dist: >3cm Neck ROM: Full Heart: rrr Lungs: cta Assessment and Plan Assessment Anesthesia Assessment: Anesthesia Plan Discussed and Chart Reviewed Final Anesthetic Review Family History of Problems with Anesthesia: No History of Problems with Anesthesia: No NPO: Yes ASA Class: III Final Preanesthetic Review: No Changes in Pt Med Stat, Meds/Allgs Chart Reviewed and Consent Obtained/Reviewed Patient Risk: Intermediate Procedure Risk: Intermediate Anesthetic Plan Anesthetic Plan: MAC: Disposition: Standard PACU
[2021-09-09 12:42] VITALS: BP 99/78; PULSE 89; RESP 16; TEMP 37.3; O2SAT 95
[2021-09-09 12:57] VITALS: BP 118/65; PULSE 90; RESP 16; TEMP 36.8; O2SAT 98
--- NOTE | 2021-09-09 18:00 | P.OP_ITS ---
Operative Note Operative Note Date of Service: 09/09/21 Narrative: Pre-op diagnosis: Colon cancer screen Post-op diagnosis:?other (Colon polyp, diverticulosis, hemorrhoids) Procedure: COLONOSCOPY TILL CECUM WITH BIOPSIES Consent: Indications for the procedure and potential complications of bleeding, perforation, reaction to medications and missed diagnosis were discussed with the patient and informed consent was obtained. Instrument: Olympus CF H 190 L variable stiffness adult colonoscope Monitoring: Vital signs and clinical assessment, intermittent blood pressure monitoring, continuous EKG monitoring, Pulse oximetry and Carbon Dioxide monitoring were done throughout the procedure. Colon withdrawl time was 11 minutes. Procedure: The patient was placed in the left lateral decubitis position and pre-procedure medications were administered. After a digital rectal examination of the ano-rectum, the video colonoscope was inserted into the rectum and advanced through the colon to the cecum. The colonoscope was slowly withdrawn in a retrograde panoramic fashion and the colon mucosa was carefully examined including a retroflexed view of the rectum. Findings and interventions are described below. Procedure Difficulty: Without difficulty Findings: Terminal Ileum: Not evaluated Cecum:? Normal Ascending Colon:? Normal Transverse Colon:? Normal Descending Colon:? Normal Sigmoid Colon:? A few 4-5 mm diminutive appearing polyps in the rectosigmoid - 1 removed with the cold biopsy.? Moderate diverticulosis Rectum:? Normal Ano-rectum:? Moderate internal hemorrhoids Colon preparation: Excellent ? Impression and Post Procedure Diagnosis: Colonoscopy Findings: One diminutive appearing polyp removed Mild diverticulosis seen in the sigmoid colon Moderate hemorrhoids on retroflexed exam. Plan: Await pathology results Patient has an appointment on 09/28/21 in the GI Clinic with SHANTELL Paez ? . Repeat Colonoscopy interval based on path results - in 5 years if polyps are adenomatous and 10 years if polyps are hyperplastic. Above findings were reviewed with the patient and colon polyps and diverticulosis handouts were given in the discharge area Surgeon: Uriel Sheikh MD Anesthesia:?MAC Was an Sexual Health Physician used for this Procedure?:?Yes Sexual Health Physician:?Tanner Patel Estimated blood loss (mL):?0 Pathology:?other (A: RIGHT COLON BXS R/O MICROSCOPIC COLITIS? B: LEFT COLON BXS R/O MICROSCOPIC COLITIS? C: SIGMOID POLYP) Condition:?stable Disposition:?PACU
== END 2021-09-09 13:35 | disposition home or self-care (01) ==
PROVIDERS: PCP Internal Medicine Gastroenterology; Visit Provider Internal Medicine Gastroenterology
PROC: 0DJD8ZZ Inspection of Lower Intestinal Tract, Via Natural or Artificial Opening Endoscopic (ICD-10-PCS; CPT 45378; principal; 2021-09-09 11:00)
DX: Z12.11 Encounter for screening for malignant neoplasm of colon (principal); K63.5 Polyp of colon; K57.30 Diverticulosis of large intestine without perforation or abscess without bleeding; K64.8 Other hemorrhoids; J45.909 Unspecified asthma, uncomplicated; Z90.49 Acquired absence of other specified parts of digestive tract; E66.9 Obesity, unspecified; Z68.34 Body mass index [BMI] 34.0-34.9, adult; Z79.899 Other long term (current) drug therapy
CPT/HCPCS: 45380; 88305

== ENCOUNTER → 2021-09-29 12:04 | Outpatient (BNVA) | payer MEDICAID, SELFPAY | PROVIDERS: PCP Internal Medicine; Visit Provider Physician Assistant | DX: K57.30 Diverticulosis of large intestine without perforation or abscess without bleeding (principal); K63.5 Polyp of colon; K64.9 Unspecified hemorrhoids; Z98.890 Other specified postprocedural states | CPT/HCPCS: 99212 ==

== ENCOUNTER 2022-10-03 17:53 | Outpatient (REF) | payer MEDICAID, SELFPAY | END 2022-10-03 17:54 | disposition home or self-care (01) | LOC: HO.HHCLNP 17:53 | PROVIDERS: Visit Provider Family Medicine | DX: R35.0 Frequency of micturition (principal) | CPT/HCPCS: 87086 ==

== ENCOUNTER 2022-10-16 09:01 | Outpatient (REF) | payer MEDICAID, SELFPAY ==
[2022-10-16 14:24] LABS: MANUAL DIFF FLAG NO
[2022-10-16 14:28] LABS: Basophils Percent Auto 0.3 % (0-2); Eosinophils Absolute Auto 0.1 X10*3/uL (0.0-0.4); Eosinophils Percent Auto 0.9 % (0-4); Hemoglobin 14.1 g/dl (14.0-18.0); Imm Gran Abs Auto 0.03 X10*3/uL (0.00-0.03); Imm Gran Pct Auto 0.3 % (0.0-0.4); Lymphocytes Absolute Auto 2.5 X10*3/uL (1.2-4.9); Lymphocytes Percent Auto 24.3 % (20-40); Mean Corpuscular Hemoglobin 27.2 pg (27.0-33.0); Mean Corpuscular Volume 84.9 fL (80.0-98.0); Monocytes Absolute Auto 0.6 X10*3/uL (0.1-1.2); Monocytes Percent Auto 5.8 % (2-11); Neutrophils Percent Auto 68.4 % (45-73); Platelet Count 253 X10*3/uL (160-400); Red Blood Count 5.18 X10*6/uL (4.60-5.80); Red Cell Distribution Width 14.1 % (11.0-16.0); White Blood Count 10.2 X10*3/uL (4.8-10.8)
[2022-10-16 14:59] LABS: Prostate Specific Antigen 0.55 ng/mL (<0.05-4.0)
[2022-10-16 15:01] LABS: Alanine Aminotransferase 38 U/L (0-40); Albumin Level 4.3 g/dL (3.5-5.0); Alkaline Phosphatase 94 U/L (39-117); Anion Gap 12 (12-20); Aspartate Amino Transferase 24 U/L (5-37); Bilirubin Total 0.5 mg/dL (0.0-1.0); Blood Urea Nitrogen 9 mg/dL (9-16); Carbon Dioxide 25 mmol/L (22-29); Chloride 105 mmol/L (96-108); Estimated Glomerular Filt Rate > 60; Glucose Fasting 93 mg/dL (60-99); Potassium 3.9 mmol/L (3.3-5.1); Sodium 138 mmol/L (135-145); Total Protein 8.2 g/dL (6.5-8.0)
== END 2022-10-16 09:02 | disposition home or self-care (01) ==
LOC: HO.CHCLDS 09:01
PROVIDERS: Visit Provider Family Medicine
DX: Z12.5 Encounter for screening for malignant neoplasm of prostate (principal); R35.0 Frequency of micturition
CPT/HCPCS: 36415; 80053; 84153; 85025

== ENCOUNTER 2022-12-08 12:59 | Outpatient (AMB) | payer MEDICAID, SELFPAY ==
--- NOTE | 2022-12-08 13:06 | A.OFFVIS_ITS ---
Intake Intake Visit Reasons: Urinary frequency Intake Note: NEW Patient presents today to established treatment for Urinary Frequency: Meds- None Allergies to Antibiotic- No Known Allergies Blood Thinner- None PVR- 0 Patient Symptoms: Patient states that he has been having some frequency. Patient previously thought he had an infection but did not. Has not tried any medications for his bladder. Allergies No Known Allergies Allergy (Verified 12/08/22 13:36) Medication List - Last Reconciled 12/08/22 by GAGE Hernandez hydrocortisone 1% (Preparation H Hydrocortisone) 1 appl topical BID-QID PRN 30 days sertraline 200 mg PO DAILY HPI HPI Comments History of Present Illness Details Margot is a very pleasant 27-year-old male patient of Dr.Betancourt Najera. He has a past medical history of asthma. He presents to the office today as a new patient for urinary frequency. Discussion with the patient today reports to be doing and feeling well. He reports noting a few months ago having episodes of urinary frequency and nocturia. He reports urinary frequency has since subsided however he continues with 1 episode of nocturia every night. However, in discussion with the patient today he is un sure if what wakes him up at night is his urination or his new onset of insomnia he has been experiencing. He otherwise denies urinary urgency, incontinence, hematuria, dysuria, foul smelling urine, changes to urinary stream, flank pain, fever, and or chills. Unable to obtain urine for urinalysis however PVR 0 mL. Discussed at length limiting fluids 2-3 hours prior to bed to assist with the 1 episode of nocturia. Discussed obtaining retroperitoneal ultrasound for further assessment evaluation. He otherwise offers no other issues or concerns at this time. FOR[facility]LY [facility], [facility] Medical History Acute cholecystitis due to biliary calculus Asthma Surgical History Hx of colonoscopy S/P laparoscopic cholecystectomy Social History Household Members: Family Housing: Apartment Do you presently have visiting nurse or other home services: No Patient Tobacco Use Status: Never used Tobacco service: No Current occupational status: unemployed Review of Systems Const All systems reviewed & are unremarkable except as noted in HPI and below Eyes Reports no additional complaints ENT Reports no additional complaints Card Reports no additional complaints Resp Reports as per HPI GI Reports no additional complaints Reports as per HPI Musc Reports no additional complaints Neuro Reports no additional complaints Psych Reports as per HPI Endo Reports no additional complaints Ramirez/Lymph Reports no additional complaints Aller/Immun Reports no additional complaints Physical Exam Const General: cooperative, comfortable, no acute distress, well developed, alert and awake Nutritional Appearance: overweight Orientation/consciousness: patient oriented x3 Limitations: no limitations HEENT Head: Yes normal to inspection, Yes normocephalic and Yes atraumatic Ears: hearing grossly normal bilaterally Eyes General: appearance normal, both eyes and all related structures Neck Neck: Yes normal visual inspection and Yes trachea midline Chest Chest palpation & inspection: normal inspection of the chest Resp Effort & Inspection: normal respiratory effort and able to speak in complete sentences Cardio Rate: regular rate GI Inspection: Yes normal to inspection General: Yes no CVA tenderness Back/Spine/Pelvis Back: no CVA tenderness Skin General skin exam: no rashes or lesions noted Neuro General: patient oriented x3 Extrem General: Yes normal to inspection Psych Appearance: grossly normal and well kempt Mental Status: mental status grossly normal Speech and movement: Normal speech and movement present and Clear speech present Affect: normal affect Attitude: cooperative Thought process: Normal thought process present Thought content: Normal thought content present Insight: Fair insight present (Psych) Judgement: Fair judgement present (Psych) Office Procedures Post Void Residual Post Residual Void Post Void Residual (PVR): 0 [id number]-Oexm Void Residual by ultrasound Assessment & Plan Assessment & Plan (1) Lower urinary tract symptoms: Code(s): R39.9 - Unspecified symptoms and signs involving the genitourinary system Plan Unable to obtain urine for urinalysis however PVR 0 mL. Will obtain retroperitoneal ultrasound for further assessment evaluation. Discussed limiting fluids 2-3 hours prior to bed to assist with 1 episode of nocturia patient is experiencing Patient reports urinary frequency has since subsided. Discussed at length potential causes for symptoms patient is reporting. Discussed near future in office cystoscopy if symptoms reoccur and or worsen. Orders: Orders US retroperitoneal comp Today R39.9 - Unspecified symptoms and signs involving the genitourinary system AMB Urinalysis Automated Today Z13.9 - Encounter for screening, unspecified AMB Post Void Residual by ultrasound Today R35.0 - Frequency of micturition Patient Instructions: The patient had an opportunity to ask questions regarding the treatment plan. All questions were answered. Physical exam, labs, and imaging were discussed and reviewed in detail. As well as risks, benefits, and discussion of treatment choices. No major barriers to understanding were identified. The patient expressed understanding and agreement with the above treatment plan. The patient was made aware they should contact our office by phone for worsening of their current condition, the appearance of new symptoms, or with any questions or concerns. Compliance is encouraged with any medications and follow up testing that is ordered. It is a privilege to be allowed the opportunity to participate in? your urological care.? Again, if you have any questions or concerns If you have any questions or concerns please do not hesitate to contact me. The office is [phone]. This note is constructed using voice recognition software. While every effort has been made to ensure accuracy fish stringer assembler errors may have been included. Yours sincerely, GAGE Hernandez Coding Level of Care Code New Pt Level 3 (28163) Diagnoses Lower urinary tract symptoms R39.9 CPT Codes Post Residual Void - PVR CPT Code: 32831-Jvqy Void Residual by ultrasound ([id number])
== END 2022-12-08 13:43 | disposition home or self-care (01) ==
PROVIDERS: PCP Internal Medicine; Visit Provider Nurse Practitioner Family
DX: R39.9 Unspecified symptoms and signs involving the genitourinary system (principal)
CPT/HCPCS: 99203

== ENCOUNTER → 2022-12-08 12:59 | Outpatient (BNVA) | payer MEDICAID, SELFPAY | PROVIDERS: PCP Internal Medicine; Visit Provider Nurse Practitioner Family | DX: R39.9 Unspecified symptoms and signs involving the genitourinary system (principal) | CPT/HCPCS: 51798; 99212 ==

== ENCOUNTER 2023-02-20 13:32 | Outpatient (REF) | payer MEDICAID, SELFPAY | END 2023-02-20 13:33 | disposition home or self-care (01) | LOC: HO.SH 13:32 | PROVIDERS: Visit Provider Registered Nurse | DX: Z01.118 Encounter for examination of ears and hearing with other abnormal findings (principal); H93.13 Tinnitus, bilateral | CPT/HCPCS: 92557; 92567; 92588 ==